=== PATIENT | female | born 1970 | race Caucasian/White ===

== ENCOUNTER 2021-02-05 10:57 | Emergency (ER) | payer MEDICARE, MEDICAID, SELFPAY ==
[2021-02-05 11:05] VITALS: BP 178/106; PULSE 95; RESP 22; TEMP 36.7; O2SAT 98
[2021-02-05 11:21] LABS: Add Urine Microscopic? YES; Appearance Urine Cloudy (Clear); Bilirubin Urine Negative (Negative); Blood Urine 3+ (Negative); Color Urine Yellow (Yellow); Glucose Urine UA Negative (Negative); Ketones Urine Negative (Negative); Leukocyte Esterase Ur 1+ LEU/UL (Negative); Nitrate Urine Negative (Negative); Protein Urine 3+ (Negative); Specific Grav Ur 1.025 (1.010-1.020); Urobilinogen Urine 0.2 mg/dL (0.2-1.0)
[2021-02-05 11:27] LABS: Bacteria Urine 1+ /hpf; RBC Urine 21-50 /hpf (0-2); Squamous Epithelial Cell Urine Moderate /hpf (Few); WBC Urine 31-50 /hpf (0-3)
--- NOTE | 2021-02-05 11:35 | ED.FEMALEGU ---
HPI - Female Genitourinary General Chief complaint: Urogenital-Female Stated complaint: Possible uti Source: patient, family and RN notes reviewed Mode of arrival: ambulatory Limitations: no limitations History of Present Illness MD elicited complaint: dysuria and UTI Onset (ago): hour(s) (2-3) Severity: moderate Female Urogenital Radiation: Non-Radiating Vaginal discharge: none Vaginal bleeding: none Urinary symptoms: Dysuria and Frequency Exacerbating factors: urination Relieving factors: none Associated symptoms: denies other symptoms Treatment prior to arrival: none Related Data Home Medications Medication Instructions Recorded Confirmed [id number]-[id number]-eqgyux ala 1 tablet PO DAILY 02/05/21 02/05/21 [Odefsey] Allergies Allergy/AdvReac Type Severity Reaction Status Date / Time No Known Allergies Allergy Verified 02/05/21 11:19 Review of Systems Review of Systems: All systems reviewed & are unremarkable except as noted in HPI and below PMFSH Past Medical History Medical History (Updated 02/05/21 @ 11:47 by Parviz Arreguin MD) 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 positive Throat cancer Surgical History Surgical History (Updated 02/05/21 @ 11:45 by Parviz Arreguin MD) H/O rotator cuff surgery History of cholecystectomy History of throat surgery Social History Social History (Updated 02/05/21 @ 11:45 by Parviz Arreguin MD) Smoking status: Never smoker Alcohol intake: never Substance use: never Exam Const: General: healthy appearing and no acute distress Nutritional Appearance: well nourished and obese centrally obese Orientation/consciousness: patient oriented x3 Other: Female nurse in room during examination. HENMT: Head: normal to inspection Ears: external ears normal Eyes: Conjunctivae: conjunctivae normal Pupils: Equal, round and reactive pupils present EOM: EOMs intact bilaterally Neck: Neck: normal visual inspection Resp: Effort & Inspection: normal respiratory effort Auscultation: clear to auscultation bilaterally Cardio: Rate: regular rate Rhythm: regular rhythm GI: GI Palp: Yes Soft to palpation and No Tenderness to palpation present (GI) Auscultation: normal bowel sounds : General: Yes no CVA tenderness Back/Spine/Pelvis: Cervical Spine: cervical ROM normal Thoracic/Lumbar Spine: thoraco-lumbar ROM normal Skin: General skin exam: normal color Rashes: no rashes Neuro: General: patient oriented x3, moves all extremities and no focal motor deficits Speech: normal speech Gait exam (Neuro): Normal gait present Extrem: General: normal to inspection and no clubbing, cyanosis or edema Psych: Mental Status: mental status grossly normal Affect: normal affect Attitude: cooperative Thought content: Yes Normal thought content present Course Vital Signs Vital signs: Vital Signs Temperature 36.7 C 02/05/21 11:05 Pulse Rate 95 02/05/21 11:05 Respiratory Rate 22 H 02/05/21 11:05 Blood Pressure 178/106 H 02/05/21 11:05 Pulse Oximetry 98 02/05/21 11:05 Temperature 36.7 C 02/05/21 11:05 Pulse Rate 95 02/05/21 11:05 Respiratory Rate 17 02/05/21 12:03 Blood Pressure 178/106 H 02/05/21 11:05 Pulse Oximetry 98 02/05/21 11:05 MDM - Female Genitourinary Lab Data Attestation: I reviewed the patient's lab results. Labs: Lab Results 02/05/21 Range/Units 11:18 Urine Color Yellow (Yellow) Urine Appearance Cloudy A (Clear) Urine pH 6.0 (5.0-8.0) Ur Specific [place] 1.025 H (1.010-1.020) Urine Protein 3+ H (Negative) Urine Glucose (UA) Negative (Negative) Urine Ketones Negative (Negative) Ur Blood (Man) 3+ H (Negative) Urine Nitrate Negative (Negative) Urine Bilirubin Negative (Negative) Urine Urobilinogen 0.2 (0.2-1.0) mg/dL Leukocyte Esterase Rfl 1+ H (Negative) LISA/UL Urine RBC 21-50 H (0-2) /hpf Urine WBC 31-50 H (0-3) /hpf Ur Squamous
[2021-02-05 12:03] VITALS: RESP 17
--- NOTE | 2021-02-10 12:47 | PC.NURSE ---
CULTURE REPORT CAME BACK AND SENT TO INFECTIOUS DISEASE PER PATIENT [phone] ALSO FAXED [phone] RECOMMENDED PATIENT ALSO FOLLOW UP WITH THIS OFFICE
== END 2021-02-05 12:04 | disposition home or self-care (01) ==
PROVIDERS: Emergency Provider Emergency Medicine
DX: N30.00 Acute cystitis without hematuria (principal)
CPT/HCPCS: 81001; 87077; 87086; 87088; 87186; 99283; A9270

== ENCOUNTER 2021-04-16 16:00 | Emergency (ER) | payer MEDICARE, MEDICAID, SELFPAY ==
[2021-04-16 16:00] VITALS: BP 134/87; PULSE 95; RESP 14; TEMP 36.9; O2SAT 98
[2021-04-16 16:35] LABS: Appearance Urine Clear (Clear); Bilirubin Urine Negative (Negative); Color Urine Yellow (Yellow); Glucose Urine UA Negative (Negative); Ketones Urine Negative (Negative); Leukocyte Esterase Ur Negative (Negative); Nitrate Urine Negative (Negative); Protein Urine 2+ (Negative); Specific Grav Ur >= 1.030 (1.010-1.020); Urobilinogen Urine 0.2 mg/dL (0.2-1.0)
[2021-04-16 16:43] LABS: Add Urine Microscopic? YES; Bacteria Urine 1+ /hpf; Blood Urine Trace (Negative); RBC Urine 0-2 /hpf (0-2); Squamous Epithelial Cell Urine Moderate /hpf (Few)
--- NOTE | 2021-04-16 16:46 | ED.ABDPAIN ---
HPI - Abdominal Pain General Chief Complaint: Abdominal Pain Stated Complaint: abd pain Source: patient and EMS Mode of arrival: EMS Limitations: no limitations History of Present Illness HPI narrative: This is a 51-year-old female that presents with crampy abdominal pain had an episode earlier today after she had some macaroni with cheese and she rated her pain initially at a 10/10 during my evaluation she said it is much improved does have some suprapubic fullness and discomfort with no dysuria no flank pain no epigastric pain pain localized in the suprapubic area had an episode of nausea and episode of vomiting otherwise no hematemesis no chest pain no shortness of breath no fever or chills. MD elicited complaint: abdominal pain Pertinent past history: none Onset (ago): hour(s) Pain Consistency: intermittent Location: suprapubic Severity: moderate Quality: cramping and burning Radiation: none Migration to: no migration Exacerbating factors: eating Relieving factors: nothing Related Data Home Medications Medication Instructions Recorded Confirmed [id number]-fzngod ala 1 tablet PO DAILY 02/05/21 04/16/21 [Marysey] lisinopril 20 mg PO DAILY 04/16/21 04/16/21 Allergies Allergy/AdvReac Type Severity Reaction Status Date / Time No Known Allergies Allergy Verified 02/05/21 11:19 Review of Systems Review of Systems: All systems reviewed & are unremarkable except as noted in HPI and below PMFSH Past Medical History Medical History 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 positive Throat cancer Surgical History Surgical History H/O rotator cuff surgery History of cholecystectomy History of throat surgery Social History Social History Smoking status: Never smoker Alcohol intake: never Substance use: never Exam Const: General: no acute distress Orientation/consciousness: patient oriented x3 HENMT: Head: normal to inspection Eyes: Conjunctivae: conjunctivae normal Pupils: Equal, round and reactive pupils present Neck: Neck: normal visual inspection and no lymphadenopathy Chest: Chest palpation & inspection: normal inspection of the chest Resp: Effort & Inspection: normal respiratory effort Cardio: Rate: regular rate GI: GI Palp: Yes Soft to palpation and Yes Tenderness to palpation present (GI) ( Tender suprapubic area) : General: Yes no CVA tenderness Urinary Catheter: Urinary Catheter: patent and draining and urine clear Back/Spine/Pelvis: Back: no CVA tenderness Skin: General skin exam: normal color Rashes: no rashes Neuro: General: patient oriented x3, moves all extremities, no meningeal signs and no focal motor deficits Extrem: General: normal to inspection and no pedal edema Psych: Appearance: grossly normal Mental Status: mental status grossly normal Affect: normal affect Thought content: Yes Normal thought content present Course Course Emergency Course: pain is essentially resolved after reassessment, did a UA which showed she has a urinary tract infection auto inspector dose of 1 g IM of ceftriaxone. Vital Signs Vital signs: Vital Signs Temperature 36.9 C 04/16/21 16:00 Pulse Rate 95 04/16/21 16:00 Respiratory Rate 14 04/16/21 16:00 Blood Pressure 134/87 04/16/21 16:00 Pulse Oximetry 98 04/16/21 16:00 Temperature 36.9 C 04/16/21 16:00 Pulse Rate 95 04/16/21 16:00 Respiratory Rate 14 04/16/21 16:00 Blood Pressure 134/87 04/16/21 16:00 Pulse Oximetry 98 04/16/21 16:00 MDM - Abdominal Pain Lab Data Labs: Lab Results 04/16/21 Range/Units 16:27 Urine Color Yellow (Yellow) Urine Appearance Clear (Clear) Urine pH 6.0 (5.0-8.0) Ur Specific [place] >= 1.030 H (1.010-1.020) Urine Protein 2+ H (Negative) Urine Gluc
[2021-04-16] MEDS: cefTRIAXone 1 GM VIAL IM (16:53)
[2021-04-16 17:25] VITALS: RESP 14; O2SAT 100
== END 2021-04-16 17:32 | disposition home or self-care (01) ==
PROVIDERS: Emergency Provider Emergency Medicine
DX: N30.00 Acute cystitis without hematuria (principal)
CPT/HCPCS: 81001; 96372; 99283; J0696

== ENCOUNTER 2021-05-03 09:45 | Emergency (ER) | payer MEDICARE, MEDICAID, SELFPAY ==
--- NOTE | ~2021-05-03 | XR_ITS ---
EXAMINATION: XR chest 1V portable 05/03/2021 10:28 INDICATION: Cough for 3 weeks PROCEDURE: AP portable chest COMPARISON: No prior studies for comparison. FINDINGS: The lungs are clear. There is a side plate and screws transfixing the left clavicle. The ca rdiomediastinal silhouette is within normal limits. There are no pleural effusions. There is no pne umothorax suspected. IMPRESSION: 1: NO ACUTE CARDIOPULMONARY DISEASE. Reviewed, dictated and finalized at location A.
[2021-05-03 10:04] VITALS: BP 145/95; PULSE 85; RESP 16; TEMP 37.3; O2SAT 98
--- NOTE | 2021-05-03 10:23 | PC.NURSE ---
bedside pcxr done at this time
--- NOTE | 2021-05-03 10:35 | PC.NURSE ---
label stitcher arrives to draw blood
[2021-05-03 10:48] LABS: Basophils Absolute Auto 0.03 K/mm3 (0.00-0.10); Basophils Percent Auto 0.5 % (0.0-1.0); Eosinophils Absolute Auto 0.19 K/mm3 (0.02-0.50); Eosinophils Percent Auto 3.2 % (1.0-6.0); Hematocrit 39.6 % (35.0-49.0); Hemoglobin 13.8 g/dL (12.0-15.0); Immature Granulocyte Absolute 0.02 K/mm3 (0.00-0.00); Immature Granulocyte Percent A 0.3 % (0.0-0.0); Lymphocytes Absolute Auto 1.62 K/mm3 (1.10-4.50); Lymphocytes Percent Auto 27.7 % (18.0-42.0); Mean Corpuscular HGB Conc 34.8 g/dL (32.0-36.0); Mean Corpuscular Hemoglobin 30.1 pg (27.0-31.0); Mean Corpuscular Volume 86.5 fL (78.0-102.0); Mean Platelet Volume 9.5 fl (9.2-11.8); Monocytes Percent Auto 6.8 % (2.0-11.0); Neutrophils Absolute Auto 3.6 K/mm3 (1.7-7.2); Neutrophils Percent Auto 61.5 % (50.0-70.0); Platelet Count Result 254 K/mm3 (150-420); Red Blood Count 4.58 M/mm3 (4.20-5.40); Red Cell Distribution Width 12.8 % (11.6-14.4); White Blood Count 5.9 K/mm3 (4.8-10.8)
--- NOTE | 2021-05-03 10:55 | ED.GENADULT ---
HPI - General Adult General Chief complaint: Upper Respiratory Infection Stated complaint: cough for 2-3 weeks Source: patient Mode of arrival: ambulatory Limitations: no limitations History of Present Illness HPI narrative: Christine is a 51F with a PMH of HIV, GERD, seasonal allergies, asthma, previous tobacco use, and obesity that presented to the emergency department with a cough for 2-3 weeks. It is worse at night, after eating and laying down. It is not helped with singulair, or albuterol. No fevers, chills, sputum production, SOB, chest pain or exercise intolerance. Related Data Home Medications Medication Instructions Recorded Confirmed nfrnjyoxxe-eofsnswi-fxuzdj ala 1 tablet PO DAILY 02/05/21 05/03/21 [Odefsey] lisinopril 20 mg PO DAILY 04/16/21 05/03/21 albuterol sulfate [ProAir 2 inh INHALATION Q4-5H PRN 05/03/21 05/03/21 RespiClick] montelukast 10 mg PO DAILY 05/03/21 05/03/21 Allergies Allergy/AdvReac Type Severity Reaction Status Date / Time No Known Allergies Allergy Verified 02/05/21 11:19 Review of Systems Constitutional: Constitutional: Reports no additional constitutional complaints, Denies chills and Denies fever(s) Eyes: Eyes: Reports no additional eye complaints ENT: Reports system reviewed and no additional complaints, except as documented Cardiovascular: Cardiovascular: Reports no additional cardiovascular complaints Respiratory: Respiratory: Reports as per HPI Gastrointestinal: Gastrointestinal: Reports no additional gastrointestinal complaints Genitourinary: Genitourinary: Reports no additional female genitourinary complaints Musculoskeletal: Musculoskeletal: Reports no additional musculoskeletal complaints Integumentary/Breasts: Skin/Breast: Reports system reviewed and no additional complaints, except as docu Neurologic: Reports system reviewed and no additional complaints, except as documented Psychiatric: Psychiatric: Reports no additional psychiatric complaints Endocrine: Endocrine: Reports no additional endocrine complaints Hematologic/Lymphatic: Hematologic/Lymphatic: Reports no additional hematologic/lymphatic complaints Allergic/Immunologic: Allergic/Immunologic: Reports no additional allergic/immunologic complaints [facility] Past Medical History Medical History 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 positive Throat cancer Surgical History Surgical History H/O rotator cuff surgery History of cholecystectomy History of throat surgery Social History Social History Smoking status: Never smoker Alcohol intake: never Substance use: never Exam Const: General: no acute distress and alert; No confusion Orientation/consciousness: patient oriented x3 Limitations: No altered mental status HENMT: Head: normal to inspection Other: atraumatic. Erythematous nasal turbinates. Eyes: Conjunctivae: conjunctivae normal Pupils: Equal, round and reactive pupils present Neck: Neck: normal visual inspection Chest: Chest palpation & inspection: normal inspection of the chest Resp: Effort & Inspection: normal respiratory effort, not labored, no retractions, not tachypneic and no use of accessory muscles Auscultation: clear to auscultation bilaterally Other: No cough present throughout the entire exam. Cardio: Rate: regular rate Rhythm: regular rhythm Heart sounds: no murmurs GI: GI Palp: Yes Soft to palpation and No Tenderness to palpation present (GI) : General: Yes no CVA tenderness Skin: General skin exam: normal color Rashes: no rashes Neuro: General: patient oriented x3 and moves all extremities Extrem: General: normal to inspection Other: No lower extremity edema Psych: Appearance: grossly normal Mental Status: mental status grossly normal Course Course Mireya
[2021-05-03 11:01] LABS: Alanine Aminotransferase 20 U/L (14-59); Albumin Level 3.3 g/dL (3.4-5.0); Alkaline Phosphatase 76 U/L (46-116); Anion Gap 9 mmol/L (8-16); Aspartate Amino Transferase 10 U/L (15-37); Bilirubin,Total 0.7 mg/dL (0.00-1.00); Blood Urea Nitrogen 10 mg/dL (7-18); Calcium 9.1 mg/dL (8.5-10.1); Carbon Dioxide 26 mmol/L (21-32); Chloride 105 mmol/L (98-108); Estimated Glomerular Filt Rate > 60; Glucose 164 mg/dL (70-99); Osmolality Calculated 293 mOsm/kg (285-295); Potassium 3.9 mmol/L (3.5-5.1); Sodium 140 mmol/L (136-145)
[2021-05-03 11:37] LABS: SARS-CoV-2 RNA PCR Negative (Negative)
[2021-05-03 11:40] VITALS: BP 149/89; PULSE 76; RESP 18; O2SAT 99
== END 2021-05-03 11:40 | disposition home or self-care (01) ==
PROVIDERS: Emergency Provider Family Medicine
DX: R05 Cough (principal); K21.9 Gastro-esophageal reflux disease without esophagitis; Z20.822 Contact with and (suspected) exposure to COVID-19
CPT/HCPCS: 36415; 71045; 80053; 85025; 99283; C9803; U0003; U0005

== ENCOUNTER 2021-05-24 19:44 | Emergency (ER) | payer MEDICARE, MEDICAID, SELFPAY | END 2021-05-24 19:45 | disposition left against medical advice (07) | LOC: CHSED 19:46 | PROVIDERS: Emergency Provider Emergency Medicine | DX: Z53.8 Procedure and treatment not carried out for other reasons (principal) | CPT/HCPCS: 99199 ==

== ENCOUNTER 2021-05-31 13:28 | Emergency (ER) | payer MEDICARE, MEDICAID, SELFPAY ==
--- NOTE | ~2021-05-31 | XR_ITS ---
EXAMINATION: XR chest 1V portable EXAM DATE: 05/31/2021 14:08 INDICATION: Cough, SOB, wheezing x 2 weeks. TECHNIQUE: Portable AP frontal chest x-ray was obtained. Comparison is made to prior examination from 05/03/2021. FINDINGS: There is left clavicular plate. The lungs are clear. There are no pleural effusions. Card iomediastinal silhouette is normal. There is no pneumothorax suspected. The bones and soft tissues are unremarkable. IMPRESSION: No acute cardiopulmonary findings. Reviewed, dictated and finalized at location A.
[2021-05-31 13:28] VITALS: BP 139/79; PULSE 94; PULSE 96; RESP 16; TEMP 36.2; O2SAT 97
--- NOTE | 2021-05-31 13:57 | ECG_ITS ---
Measurements Intervals [place] Rate: 86 P: 53 MI: 152 QRS: 66 QRSD: 83 T: 82 QT: 382 QTc: 458 Interpretive Statements SINUS RHYTHM BORDERLINE T WAVE ABNORMALITY- ANT/HIGH LAT LEADS BASELINE ARTIFACT- III, AVR, AVL, AVF BORDERLINE ECG Electronically Signed On 05-31-2021 14:25:29 CDT by Kurt Remy D.O.
--- NOTE | 2021-05-31 13:59 | ED.GENADULT ---
HPI - General Adult General Chief complaint: Chest Pain Stated complaint: chest pain Source: patient Mode of arrival: ambulatory Limitations: no limitations History of Present Illness HPI narrative: Christine is a 51F with a PMH of GERD, asthma, DJD, HIV and throat cancer that presented to the ED with a chronic cough. (Her chest hurts when she coughs and this is why she said she has chest pain to the desk). She has had a cough for about two months. It has mostly been a dry cough but she has had some occasional green sputum. She has tried cough drops, tessalon perles, famotidine, switching from lisinopril to losartan, montelukast and her albuterol. Occasionally the albuterol helps. The cough is worse when she eats or lays flat. It wakes her up at night. No weight changes, fevers, chills, night sweats, or covid exposure. Related Data Home Medications Medication Instructions Recorded Confirmed [id number]-jijtzslx-hhwuxz ala 1 tablet PO DAILY 02/05/21 05/31/21 [Odefsey] albuterol sulfate [ProAir 2 inh INHALATION Q4-5H PRN 05/03/21 05/31/21 RespiClick] montelukast 10 mg PO DAILY 05/03/21 05/31/21 losartan 25 mg PO DAILY 05/31/21 05/31/21 metformin 500 mg PO DAILY 05/31/21 05/31/21 Allergies Allergy/AdvReac Type Severity Reaction Status Date / Time No Known Allergies Allergy Verified 02/05/21 11:19 Review of Systems Constitutional: Constitutional: Reports no additional constitutional complaints Eyes: Eyes: Reports no additional eye complaints ENT: Reports system reviewed and no additional complaints, except as documented Cardiovascular: Cardiovascular: Reports no additional cardiovascular complaints, Denies rapid heart rate, Denies radiating jaw, neck or arm pain and Denies slow heart rate Comments: CP only when coughing Respiratory: Respiratory: Reports as per HPI Gastrointestinal: Gastrointestinal: Reports no additional gastrointestinal complaints Genitourinary: Genitourinary: Reports no additional female genitourinary complaints Musculoskeletal: Musculoskeletal: Reports no additional musculoskeletal complaints Integumentary/Breasts: Skin/Breast: Reports system reviewed and no additional complaints, except as docu Neurologic: Reports system reviewed and no additional complaints, except as documented Psychiatric: Psychiatric: Reports no additional psychiatric complaints Endocrine: Endocrine: Reports no additional endocrine complaints Hematologic/Lymphatic: Hematologic/Lymphatic: Reports no additional hematologic/lymphatic complaints Allergic/Immunologic: Allergic/Immunologic: Reports no additional allergic/immunologic complaints [facility] Past Medical History Medical History 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 positive Throat cancer Surgical History Surgical History H/O rotator cuff surgery History of cholecystectomy History of throat surgery Social History Social History Smoking status: Never smoker Alcohol intake: never Substance use: never Exam Const: General: no acute distress and alert Orientation/consciousness: patient oriented x3 Limitations: altered mental status HENMT: Head: normal to inspection Other: atraumatic Eyes: Conjunctivae: conjunctivae normal Pupils: Equal, round and reactive pupils present Neck: Other: Horizontal scar from previous surgery Chest: Chest palpation & inspection: normal inspection of the chest Resp: Effort & Inspection: normal respiratory effort, not labored, not tachypneic and no use of accessory muscles Auscultation: clear to auscultation bilaterally Other: No cough present during entire exam Cardio: Rate: regular rate Rhythm: regular rhythm Heart sounds: no murmurs Skin: General skin exam: normal color Rashes: no rashes Neuro: General: patient oriented x3 a
[2021-05-31 14:19] LABS: Basophils Absolute Auto 0.02 K/mm3 (0.00-0.10); Basophils Percent Auto 0.4 % (0.0-1.0); Eosinophils Absolute Auto 0.39 K/mm3 (0.02-0.50); Eosinophils Percent Auto 7.6 % (1.0-6.0); Hematocrit 37.9 % (35.0-49.0); Hemoglobin 13.1 g/dL (12.0-15.0); Immature Granulocyte Absolute 0.02 K/mm3 (0.00-0.00); Immature Granulocyte Percent A 0.4 % (0.0-0.0); Lymphocytes Percent Auto 36.8 % (18.0-42.0); Mean Corpuscular HGB Conc 34.6 g/dL (32.0-36.0); Mean Corpuscular Hemoglobin 29.8 pg (27.0-31.0); Mean Corpuscular Volume 86.1 fL (78.0-102.0); Mean Platelet Volume 9.9 fl (9.2-11.8); Monocytes Absolute Auto 0.43 K/mm3 (0.10-0.90); Monocytes Percent Auto 8.3 % (2.0-11.0); Neutrophils Absolute Auto 2.4 K/mm3 (1.7-7.2); Neutrophils Percent Auto 46.5 % (50.0-70.0); Platelet Count Result 245 K/mm3 (150-420); Red Cell Distribution Width 13.6 % (11.6-14.4); White Blood Count 5.2 K/mm3 (4.8-10.8)
[2021-05-31 14:29] LABS: Prothrombin Time 10.5 Seconds (9.50-12.10)
[2021-05-31 14:38] LABS: Alanine Aminotransferase 27 U/L (14-59); Albumin Level 3.1 g/dL (3.4-5.0); Alkaline Phosphatase 66 U/L (46-116); Anion Gap 11 mmol/L (8-16); Aspartate Amino Transferase 26 U/L (15-37); Bilirubin,Total 0.4 mg/dL (0.00-1.00); Blood Urea Nitrogen 13 mg/dL (7-18); Calcium 8.7 mg/dL (8.5-10.1); Carbon Dioxide 24 mmol/L (21-32); Chloride 107 mmol/L (98-108); Estimated CRCL calculation 62 ml/min; Estimated Glomerular Filt Rate 44; Glucose 292 mg/dL (70-99); NT Pro B Type Natriuretic Pept < 5 pg/mL (0-125); Osmolality Calculated 305 mOsm/kg (285-295); Potassium 3.8 mmol/L (3.5-5.1); Sodium 142 mmol/L (136-145); Total Protein 6.6 g/dL (6.4-8.2)
[2021-05-31 14:41] LABS: Troponin I 5.7 ng/L (0.00-60.4)
[2021-05-31 15:32] VITALS: BP 106/67; PULSE 81; RESP 14; O2SAT 95
== END 2021-05-31 15:30 | disposition home or self-care (01) ==
PROVIDERS: Emergency Provider Family Medicine
DX: R05 Cough (principal); M19.90 Unspecified osteoarthritis, unspecified site; B20 Human immunodeficiency virus [HIV] disease
CPT/HCPCS: 36415; 71045; 80053; 83880; 84484; 85025; 85610; 93005; 99283; 99284

== ENCOUNTER 2021-10-08 22:43 | Emergency (ER) | payer MEDICARE, MEDICAID, SELFPAY ==
--- NOTE | ~2021-10-08 | XR_ITS ---
EXAMINATION: XR chest 1V portable EXAM DATE: 10/08/2021 23:25 INDICATION: Cough, fever . TECHNIQUE: Portable AP frontal chest x-ray was obtained. Comparison is made to prior examination from 05/31/2021. FINDINGS: The lungs are clear. There are no pleural effusions. The cardiomediastinal silhouette is within normal limits. There is no pneumothorax suspected. Left clavicular orthopedic plate bridging a healed fracture. IMPRESSION: No acute cardiopulmonary findings. Reviewed, dictated and finalized at location A. GHT INSPECTOR
--- NOTE | ~2021-10-08 | XR_ITS ---
EXAMINATION: XR chest 2V EXAM DATE: 10/09/2021 01:28 INDICATION: Cough and fever. TECHNIQUE: Frontal and lateral projections of the chest obtained and reviewed. Comparison is made to prior examination from 10/08/2021. FINDINGS: The lungs are clear. There are no pleural effusions. The cardiomediastinal silhouette is within normal limits. There is no pneumothorax suspected. The bones and soft tissues are unremarkab le. IMPRESSION: No acute cardiopulmonary findings. Reviewed, dictated and finalized at location A. POSTER
--- NOTE | 2021-10-08 22:54 | ED.URI ---
HPI - URI/Sore Throat General Chief Complaint: Upper Respiratory Infection Stated Complaint: COUGH FEVER Source: patient and RN notes reviewed Mode of arrival: ambulatory Limitations: no limitations History of Present Illness MD elicited complaint: fever, cough and nasal congestion Onset (ago): day(s) (1) Consistency: constant Severity: moderate Description of mucous: clear Able to tolerate fluids by mouth: Yes Exacerbating factors: nothing Relieving factors: nothing Associated symptoms: fever (subjective) and chills Treatments prior to arrival: none Related Data Home Medications Medication Instructions Recorded Confirmed ighsgsrgsb-urwauvys-krsmvu ala 1 tablet PO DAILY 02/05/21 10/08/21 [Odefsey] albuterol sulfate [ProAir 2 inh INHALATION Q4-5H PRN 05/03/21 10/08/21 RespiClick] montelukast 10 mg PO DAILY 05/03/21 10/08/21 losartan 25 mg PO DAILY 05/31/21 10/08/21 Allergies Allergy/AdvReac Type Severity Reaction Status Date / Time No Known Allergies Allergy Verified 02/05/21 11:19 Review of Systems Review of Systems: All systems reviewed & are unremarkable except as noted in HPI and below Cardiovascular: Cardiovascular: Denies chest pain Respiratory: Respiratory: Denies dyspnea and Denies wheezing Gastrointestinal: Gastrointestinal: Denies diarrhea, Denies nausea and Denies vomiting Genitourinary: Genitourinary: Denies nocturia, Denies dysuria and Denies urinary incontinence [facility] Past Medical History Medical History (Updated 10/09/21 @ 02:10 by Parviz Arreguin MD) 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 positive Throat cancer Surgical History Surgical History (Updated 10/08/21 @ 23:18 by Parviz Arreguin MD) H/O rotator cuff surgery History of bilateral tubal ligation History of cholecystectomy History of throat surgery Social History Social History (Updated 10/08/21 @ 23:19 by Parviz Arreguin MD) Smoking status: Former smoker Alcohol intake: never Substance use: never Exam Const: General: healthy appearing, no acute distress and alert Nutritional Appearance: obese centrally obese Orientation/consciousness: patient oriented x3 Other: patient seen and examined in full PPE HENMT: Head: normal to inspection Ears: external ears normal Face and sinus: normal facial exam Mouth: Yes moist mucous membranes Eyes: Conjunctivae: conjunctivae normal Pupils: Equal, round and reactive pupils present EOM: EOMs intact bilaterally Neck: Neck: normal visual inspection Resp: Effort & Inspection: normal respiratory effort Auscultation: clear to auscultation bilaterally Cardio: Rate: tachycardic Rhythm: regular rhythm GI: GI Palp: Yes Soft to palpation, No Tenderness to palpation present (GI), No Guarding due to palpation present (GI) and No Rebound tenderness present Auscultation: normal bowel sounds Back/Spine/Pelvis: Cervical Spine: cervical ROM normal Thoracic/Lumbar Spine: thoraco-lumbar ROM normal Skin: General skin exam: normal color Rashes: no rashes Neuro: General: patient oriented x3, moves all extremities, no meningeal signs, no focal motor deficits and CN's II-XI intact bilaterally Speech: normal speech Gait exam (Neuro): Normal gait present Extrem: General: normal to inspection and no clubbing, cyanosis or edema Psych: Appearance: grossly normal and well kempt Mental Status: mental status grossly normal Affect: normal affect Attitude: cooperative Thought content: Yes Normal thought content present Course Vital Signs Vital signs: Vital Signs Temperature 38.8 C H 10/08/21 23:10 Pulse Rate 118 H 10/08/21 23:10 Respiratory Rate 22 H 10/08/21 23:10 Blood Pressure 176/106 H 10/08/21 23:10 Pulse Oximetry 96 10/08/21 23:10 Temperature 36.6 C 10/09/21 02:14 Pulse Rate 97 10/09/21 02:14 Respiratory Rate 20 10/09/21 02:14 Blood Pressure 149/90 H 10/09/21 02:14 Pulse Oximetry 97 10/09/21 02:14 MDM - URI/Sore T
[2021-10-08 23:10] VITALS: BP 176/106; PULSE 118; RESP 22; TEMP 38.8; O2SAT 96
[2021-10-08 23:23] LABS: Basophils Absolute Auto 0.03 K/mm3 (0.00-0.10); Basophils Percent Auto 0.4 % (0.0-1.0); Eosinophils Absolute Auto 0.29 K/mm3 (0.02-0.50); Eosinophils Percent Auto 4.1 % (1.0-6.0); Hematocrit 42.2 % (35.0-49.0); Hemoglobin 14.9 g/dL (12.0-15.0); Immature Granulocyte Absolute 0.03 K/mm3 (0.00-0.00); Immature Granulocyte Percent A 0.4 % (0.0-0.0); Lymphocytes Absolute Auto 1.53 K/mm3 (1.10-4.50); Lymphocytes Percent Auto 21.7 % (18.0-42.0); Mean Corpuscular HGB Conc 35.3 g/dL (32.0-36.0); Mean Corpuscular Hemoglobin 31.2 pg (27.0-31.0); Mean Corpuscular Volume 88.5 fL (78.0-102.0); Mean Platelet Volume 9.7 fl (9.2-11.8); Monocytes Absolute Auto 0.63 K/mm3 (0.10-0.90); Monocytes Percent Auto 8.9 % (2.0-11.0); Neutrophils Absolute Auto 4.5 K/mm3 (1.7-7.2); Neutrophils Percent Auto 64.5 % (50.0-70.0); Platelet Count Result 274 K/mm3 (150-420); Red Blood Count 4.77 M/mm3 (4.20-5.40); Red Cell Distribution Width 13.1 % (11.6-14.4)
[2021-10-08] MEDS: ACETAMINOPHEN 500 MG TABLET 1000 MG PO (23:29)
[2021-10-08 23:54] LABS: Ferritin 173 ng/mL (8-252); Magnesium 1.7 mg/dL (1.8-2.4)
[2021-10-08 23:55] LABS: Anion Gap 11 mmol/L (8-16); Carbon Dioxide 25 mmol/L (21-32); Chloride 99 mmol/L (98-108); Potassium 3.9 mmol/L (3.5-5.1); Sodium 135 mmol/L (136-145)
[2021-10-08 23:56] LABS: Alanine Aminotransferase 25 U/L (14-59); Albumin Level 3.1 g/dL (3.4-5.0); Alkaline Phosphatase 89 U/L (46-116); Aspartate Amino Transferase 10 U/L (15-37); Bilirubin,Total 0.5 mg/dL (0.00-1.00); Blood Urea Nitrogen 10 mg/dL (7-18); Calcium 8.7 mg/dL (8.5-10.1); Estimated CRCL calculation 78 ml/min; Estimated Glomerular Filt Rate 58; Glucose 284 mg/dL (70-99); Osmolality Calculated 289 mOsm/kg (285-295); Total Protein 6.8 g/dL (6.4-8.2)
[2021-10-09 00:16] VITALS: BP 127/69; PULSE 104; RESP 20; O2SAT 95
[2021-10-09 01:00] VITALS: BP 126/72; PULSE 104; RESP 18; TEMP 36.3; O2SAT 96
[2021-10-09 01:15] LABS: SARS-CoV-2 RNA PCR Negative (Negative)
[2021-10-09 01:16] LABS: Influenza Control Valid (Valid)
[2021-10-09 02:14] VITALS: BP 149/90; PULSE 97; RESP 20; TEMP 36.6; O2SAT 97
== END 2021-10-09 02:16 | disposition home or self-care (01) ==
PROVIDERS: Emergency Provider Emergency Medicine
DX: J40 Bronchitis, not specified as acute or chronic (principal); Z20.822 Contact with and (suspected) exposure to COVID-19; Z21 Asymptomatic human immunodeficiency virus [HIV] infection status; Z87.891 Personal history of nicotine dependence; Z85.819 Personal history of malignant neoplasm of unspecified site of lip, oral cavity, and pharynx
CPT/HCPCS: 36415; 71045; 71046; 80053; 82728; 83605; 83735; 85025; 87804; 99282; 99283; C9803; U0003; U0005

== ENCOUNTER 2021-11-28 15:37 | Emergency (ER) | payer MEDICARE, MEDICAID, SELFPAY ==
[2021-11-28 15:52] VITALS: BP 149/96; PULSE 103; RESP 18; TEMP 35.9; O2SAT 94
--- NOTE | 2021-11-28 15:55 | ED.GENADULT ---
HPI - General Adult General Chief complaint: Unspecified Stated complaint: muscle cramps-two weeks Time Seen by Provider: 11/28/21 15:56 Source: patient Mode of arrival: ambulatory Limitations: no limitations History of Present Illness HPI narrative: [age] year old woman comes in today complaining of muscle cramps have been present for last week. She states that the cramps have been in her arms, legs, back, neck, and hands. They usually resolve with application of heat. She recently developed some UTI symptoms (frequency) and her doctor prescribed an antibiotic which she has not started to take. No urinalysis has been done. She has also had some recent cough and cold symptoms. She denies fever, vomiting, diarrhea, shortness of breath, chest pain and weakness. Onset (ago): week(s) (2) Severity: moderate Quality: other (Cramping muscles) Pain Consistency: intermittent Relieving factors: other (Application of heat) Exacerbating factors: none Associated symptoms: denies other symptoms Treatments prior to arrival: heat therapy Related Data Home Medications Medication Instructions Recorded Confirmed montelukast 10 mg PO DAILY 05/03/21 11/28/21 losartan 25 mg PO DAILY 05/31/21 11/28/21 Allergies Allergy/AdvReac Type Severity Reaction Status Date / Time No Known Allergies Allergy Verified 11/28/21 16:01 Review of Systems Review of Systems: All systems reviewed & are unremarkable except as noted in HPI and below Constitutional: Constitutional: Reports no additional constitutional complaints Eyes: Eyes: Reports no additional eye complaints ENT: Reports nasal congestion and Denies sore throat Cardiovascular: Cardiovascular: Denies chest pain and Denies leg edema Respiratory: Respiratory: Denies chest congestion, Reports cough and Denies hemoptysis Gastrointestinal: Gastrointestinal: Denies diarrhea, Denies nausea and Denies vomiting Musculoskeletal: Musculoskeletal: Denies arthralgias, Denies joint swelling, Reports muscle cramps and Denies muscle weakness Integumentary/Breasts: Skin/Breast: Denies pruritus, Denies lesions, Denies erythema and Denies rash Neurologic: Denies vertigo, Denies dizziness, Denies syncope and Denies weakness Hematologic/Lymphatic: Hematologic/Lymphatic: Denies easy bleeding and Denies easy bruising Allergic/Immunologic: Allergic/Immunologic: Denies urticaria, Denies lip swelling and Denies throat swelling PMF Past Medical History Medical History 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 positive Throat cancer Surgical History Surgical History H/O rotator cuff surgery History of bilateral tubal ligation History of cholecystectomy History of throat surgery Social History Social History Smoking status: Former smoker Alcohol intake: never Substance use: never Exam Const: General: cooperative, healthy appearing, no acute distress, alert, awake and Physically active Nutritional Appearance: overweight Orientation/consciousness: patient oriented x3 Limitations: no limitations HENMT: Head: normal to inspection and atraumatic Ears: external ears normal and TM's normal bilaterally Face and sinus: normal facial exam Throat: posterior oropharynx normal Eyes: Pupils: Equal, round and reactive pupils present EOM: EOMs intact bilaterally Course Vital Signs Vital signs: Vital Signs Temperature 35.9 C L 11/28/21 15:52 Pulse Rate 103 H 11/28/21 15:52 Respiratory Rate 18 11/28/21 15:52 Blood Pressure 149/96 H 11/28/21 15:52 Pulse Oximetry 94 11/28/21 15:52 Temperature 35.9 C L 11/28/21 15:52 Pulse Rate 103 H 11/28/21 15:52 Respiratory Rate 18 11/28/21 15:52 Blood Pressure 149/96 H 11/28/21 15:52 Pulse Oximetry 94 11/28/21 15:52 Medical Decision Making
[2021-11-28 16:26] LABS: Basophils Absolute Auto 0.03 K/mm3 (0.00-0.10); Basophils Percent Auto 0.3 % (0.0-1.0); Eosinophils Absolute Auto 0.09 K/mm3 (0.02-0.50); Hematocrit 41.3 % (35.0-49.0); Hemoglobin 14.5 g/dL (12.0-15.0); Immature Granulocyte Absolute 0.03 K/mm3 (0.00-0.00); Immature Granulocyte Percent A 0.3 % (0.0-0.0); Lymphocytes Absolute Auto 1.69 K/mm3 (1.10-4.50); Lymphocytes Percent Auto 17.9 % (18.0-42.0); Mean Corpuscular HGB Conc 35.1 g/dL (32.0-36.0); Mean Corpuscular Hemoglobin 31.1 pg (27.0-31.0); Mean Corpuscular Volume 88.6 fL (78.0-102.0); Monocytes Absolute Auto 0.89 K/mm3 (0.10-0.90); Monocytes Percent Auto 9.4 % (2.0-11.0); Neutrophils Absolute Auto 6.7 K/mm3 (1.7-7.2); Neutrophils Percent Auto 71.1 % (50.0-70.0); Platelet Count Result 314 K/mm3 (150-420); Red Blood Count 4.66 M/mm3 (4.20-5.40); Red Cell Distribution Width 12.2 % (11.6-14.4); White Blood Count 9.4 K/mm3 (4.8-10.8)
[2021-11-28 16:49] LABS: Alanine Aminotransferase 22 U/L (14-59); Albumin Level 3.2 g/dL (3.4-5.0); Alkaline Phosphatase 77 U/L (46-116); Anion Gap 13 mmol/L (8-16); Aspartate Amino Transferase 16 U/L (15-37); Bilirubin,Total 0.7 mg/dL (0.00-1.00); Blood Urea Nitrogen 13 mg/dL (7-18); Calcium 8.8 mg/dL (8.5-10.1); Carbon Dioxide 23 mmol/L (21-32); Chloride 99 mmol/L (98-108); Estimated CRCL calculation 66 ml/min; Estimated Glomerular Filt Rate 46; Glucose 283 mg/dL (70-99); Magnesium 1.9 mg/dL (1.8-2.4); Osmolality Calculated 290 mOsm/kg (285-295); Potassium 3.4 mmol/L (3.5-5.1); Sodium 135 mmol/L (136-145); Total Protein 7.2 g/dL (6.4-8.2)
[2021-11-28 16:50] LABS: Phosphorus 2.3 mg/dL (2.6-4.7)
[2021-11-28 16:50] LABS: Thyroid Stimulating Hormone Reflex 1.36 u/IU/mL (0.36-3.74)
[2021-11-28 17:01] LABS: SARS-CoV-2 RNA PCR Negative (Negative)
[2021-11-28 17:39] VITALS: BP 146/100; PULSE 94; RESP 20; TEMP 36.1; O2SAT 96
[2021-11-28 17:46] LABS: Creatine Kinase 113 U/L (26-192)
== END 2021-11-28 17:44 | disposition home or self-care (01) ==
PROVIDERS: Emergency Provider Emergency Medicine
DX: R25.2 Cramp and spasm (principal); E87.6 Hypokalemia; Z87.891 Personal history of nicotine dependence
CPT/HCPCS: 36415; 80053; 82550; 83735; 84100; 84443; 85025; 99283; C9803; U0003; U0005

== ENCOUNTER 2021-12-15 03:28 | Emergency (ER) | payer MEDICARE, MEDICAID, SELFPAY ==
[2021-12-15 03:39] VITALS: BP 153/106; PULSE 95; RESP 22; TEMP 36.8; O2SAT 99
--- NOTE | 2021-12-15 03:59 | ED.GENADULT ---
HPI - General Adult General Chief complaint: Unspecified Stated complaint: congestion Time Seen by Provider: 12/15/21 03:59 Source: patient Mode of arrival: ambulatory History of Present Illness HPI narrative: this is a 51-year-old female who presents with some postnasal drip with sinus congestion and frontal sinus pressure bilateral ear pressure and sensation that ears are muffled with no fever chills no shortness of breath no nausea vomiting no chest pain. 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 positive Throat cancer Surgical History Surgical History H/O rotator cuff surgery History of bilateral tubal ligation History of cholecystectomy History of throat surgery Social History Social History Smoking status: Former smoker Alcohol intake: never Substance use: never Exam Const: General: cooperative, healthy appearing, comfortable, no acute distress and well developed HENMT: Head: other ( Frontal sinus tenderness with palpation) General nose exam: Abnormal mucous membranes and turbinates present and Nasal discharge present Eyes: General: appearance normal, both eyes and all related structures Eyelids: eyelids normal Conjunctivae: conjunctivae normal Neck: Neck: normal visual inspection, full ROM and no lymphadenopathy Chest: Chest palpation & inspection: normal inspection of the chest and normal palpation of entire chest wall Resp: Effort & Inspection: normal respiratory effort and able to speak in complete sentences Auscultation: clear to auscultation bilaterally Cardio: Jugular venous distension: no JVD Palpation: normal PMI Rate: regular rate Rhythm: regular rhythm GI: Inspection: normal to inspection Skin: General skin exam: normal color and no rashes or lesions noted Neuro: General: oriented to person, oriented to place and oriented to time Psych: Appearance: grossly normal and well kempt Course Course Emergency Course: patient received 1g ceftriaxone intramuscularly. Otherwise doing afebrile. Vital Signs Vital signs: Vital Signs Temperature 36.8 C 12/15/21 03:39 Pulse Rate 95 12/15/21 03:39 Respiratory Rate 22 H 12/15/21 03:39 Blood Pressure 153/106 H 12/15/21 03:39 Pulse Oximetry 99 12/15/21 03:39 Temperature 36.8 C 12/15/21 03:39 Pulse Rate 95 12/15/21 03:39 Respiratory Rate 22 H 12/15/21 03:39 Blood Pressure 153/106 H 12/15/21 03:39 Pulse Oximetry 99 12/15/21 03:39 Medical Decision Making Vital Signs Vital Signs: Vital Signs Temperature 36.8 C 12/15/21 03:39 Pulse Rate 95 12/15/21 03:39 Respiratory Rate 22 H 12/15/21 03:39 Blood Pressure 153/106 H 12/15/21 03:39 Pulse Oximetry 99 12/15/21 03:39 Temperature 36.8 C 12/15/21 03:39 Pulse Rate 95 12/15/21 03:39 Respiratory Rate 22 H 12/15/21 03:39 Blood Pressure 153/106 H 12/15/21 03:39 Pulse Oximetry 99 12/15/21 03:39 Critical Care Time Critical Care Time Critical Care Time: No Discharge Plan Discharge Clinical Impression: Sinusitis Qualifiers: Sinusitis location: frontal Chronicity: acute Recurrence: non-recurrent Qualified Code(s): J01.10 - Acute frontal sinusitis, unspecified Patient Disposition: Home, Self-Care Condition: Stable Instructions: Antibiotic Form Additional
[2021-12-15] MEDS: cefTRIAXone 1 GM VIAL IM (04:06)
[2021-12-15 04:24] VITALS: BP 153/106; PULSE 99; RESP 22; TEMP 36.8; O2SAT 99
--- NOTE | 2021-12-15 04:28 | PC.NURSE ---
0 signs or symptoms of adverse reaction s/p IM Rocephin
== END 2021-12-15 04:27 | disposition home or self-care (01) ==
PROVIDERS: Emergency Provider Emergency Medicine
DX: J01.10 Acute frontal sinusitis, unspecified (principal)
CPT/HCPCS: 96372; 99283; J0696

== ENCOUNTER 2023-06-28 21:40 | Emergency (ER) | payer MEDICARE, MEDICAID, SELFPAY ==
[2023-06-28 21:40] VITALS: BP 177/104; PULSE 90; RESP 24; TEMP 36.7; O2SAT 96
--- NOTE | 2023-06-28 21:49 | ED.GENADULT ---
HPI - General Adult General Chief complaint: Unspecified Stated complaint: headache; congestion Time Seen by Provider: 06/28/23 21:48 Source: patient Mode of arrival: ambulatory Limitations: no limitations History of Present Illness HPI narrative: Patient is a 53-year-old white female with history of HIV complains of sinus congestion sinus pain migraine headache for 1 week. Complains of a sore throat. No cough difficulty breathing she is eating drinking stooling and voiding fine no rash or itching no bleeding or bruising dizziness or lightheadedness rash or itching swelling lumps or bumps or any other complaints. 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 Head normocephalic, atraumatic.? Eyes conjunctiva pink sclera nonicteric.? Extraocular movements are intact.? Ears externally normal. TMs are normal. No facial tenderness? Oropharynx is clear with moist mucous membranes without exudates.? Neck is supple nontender no lymphadenopathy.? Back is nontender.? Lungs are clear.? Heart is regular rate and rhythm without murmurs gallops or rubs.? Extremities no cyanosis clubbing or edema.? Skin is warm and dry without rashes or lesions.? Neurological patient is alert and oriented x4.? Motor and sensory grossly intact.? Gait is normal. Medical Decision Making MDM Narrative Medical decision making narrative: patient was placed in room 1 With her daughter and a history and physicals was was performed. she is given amoxicillin 500 mg. Independent Historian: ? Daughter Differential Dx includes but not limited to: sinusitis pharyngitis upper respiratory infection Medications were Reviewed:? ? Medications treatments given: amoxicillin Independently Interpreted by me:? External Source Review:?? ED visit for sinusitis in November this year reviewed Medical conditions/social Situation Impacting Patients Care:?? HIV Shared decision Making:? evaluations discussed with patient her daughter all questions were asked and answered patient agreed with plan to take amoxicillin 500 mg 3 times a day for 10 days and Claritin once a day [id number] follow up with her primary care provider. Return if she got worse Or developed any new symptoms. ? Clinical impression:? ? Sinusitis ? Patient disposition: ? discharge ? Condition at discharge: stable Discharge Plan Discharge Clinical Impression: Acute bacterial sinusitis Patient Disposition: Home, Self-Care Condition: Stable Instructions: Antibiotic Form, Sinusitis (ED) Additional Instructions: amoxicillin 500 3 times a day for 10 days. Get cleared to 10 mg daily [id number]. Follow up with primary care provider. Return if you get worse or develops any new symptoms. Tylenol and or ibuprofen as needed for pain. Prescriptions: New amoxicillin 500 mg capsule 500 mg PO TID 10 Days Qty: 30 0RF Follow-up/Referrals: UNKNOWN,DOCTOR [Primary Care Provider] - Time of Disposition: 21:58
[2023-06-28] MEDS: AMOXICILLIN 500 MG CAPSULE PO (21:57)
[2023-06-28 22:01] VITALS: BP 146/97; PULSE 85; RESP 16; TEMP 36.7; O2SAT 96
--- NOTE | 2023-06-28 22:01 | ED_ITS ---
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 positive Throat cancer Surgical History Surgical History H/O rotator cuff surgery History of bilateral tubal ligation History of cholecystectomy History of throat surgery Social History Social History Smoking status: Former smoker Alcohol intake: never Substance use: never Course Vital Signs Vital signs: Vital Signs Temperature 36.7 C 06/28/23 21:40 Pulse Rate 90 06/28/23 21:40 Respiratory Rate 24 H 06/28/23 21:40 Blood Pressure 177/104 H 06/28/23 21:40 Pulse Oximetry 96 06/28/23 21:40 Oxygen Delivery Room Air 06/28/23 21:40 Temperature 36.7 C 06/28/23 21:40 Pulse Rate 90 06/28/23 21:40 Respiratory Rate 24 H 06/28/23 21:40 Blood Pressure 177/104 H 06/28/23 21:40 Pulse Oximetry 96 06/28/23 21:40 Oxygen Delivery Room Air 06/28/23 21:40 Medical Decision Making Vital Signs Vital Signs: Vital Signs Temperature 36.7 C 06/28/23 21:40 Pulse Rate 90 06/28/23 21:40 Respiratory Rate 24 H 06/28/23 21:40 Blood Pressure 177/104 H 06/28/23 21:40 Pulse Oximetry 96 06/28/23 21:40 Oxygen Delivery Room Air 06/28/23 21:40 Temperature 36.7 C 06/28/23 21:40 Pulse Rate 90 06/28/23 21:40 Respiratory Rate 24 H 06/28/23 21:40 Blood Pressure 177/104 H 06/28/23 21:40 Pulse Oximetry 96 06/28/23 21:40 Oxygen Delivery Room Air 06/28/23 21:40 Discharge Plan Discharge Clinical Impression: Acute bacterial sinusitis Patient Disposition: Home, Self-Care Condition: Stable Instructions: Antibiotic Form, Sinusitis (ED) Additional Instructions: amoxicillin 500 3 times a day for 10 days. Get cleared to 10 mg daily [id number]. Follow up with primary care provider. Return if you get worse or develops any new symptoms. Tylenol and or ibuprofen as needed for pain. Prescriptions: New amoxicillin 500 mg capsule 500 mg PO TID 10 Days Qty: 30 0RF Follow-up/Referrals: UNKNOWN,DOCTOR [Primary Care Provider] - Time of Disposition: 21:58
== END 2023-06-28 22:02 | disposition home or self-care (01) ==
LOC: CHSED 21:57
PROVIDERS: Emergency Provider Emergency Medicine
DX: J01.90 Acute sinusitis, unspecified (principal); B96.89 Other specified bacterial agents as the cause of diseases classified elsewhere; B20 Human immunodeficiency virus [HIV] disease; Z85.89 Personal history of malignant neoplasm of other organs and systems; Z87.891 Personal history of nicotine dependence
CPT/HCPCS: 99283; A9270